=== PATIENT | male | born 1950 | race Caucasian/White ===

== ENCOUNTER 2025-02-02 14:44 | Emergency (ER) | payer MEDICARE ==
[2025-02-02] MEDS: Diphtheria,Pertussis(Acell),Tetanus Vaccine 0.5 ML Syringe IM ONE (15:38)
== END 2025-02-02 16:21 | disposition home or self-care (01) ==
LOC: JP.ED 14:44
DX: S60.453A Superficial foreign body of left middle finger, initial encounter (principal); W45.8XXA Other foreign body or object entering through skin, initial encounter; Z23 Encounter for immunization
CPT/HCPCS: 73140; 90471; 90715; 99283; J2003